=== PATIENT | male | born 1955 | race Caucasian/White ===

== ENCOUNTER 2016-10-12 12:12 | Outpatient (CLI) | payer BC ==
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
== END 2016-10-12 12:13 | disposition home or self-care (01) ==
LOC: NAV RAD 12:12
PROVIDERS: ATTEND Internal Medicine
DX: R07.89 Other chest pain (principal); S22.32XA Fracture of one rib, left side, initial encounter for closed fracture

== ENCOUNTER 2016-10-28 13:36 | Outpatient (CLI) | payer BC ==
[2016-10-28 15:02] LABS: ALT (SGPT) 54 U/L (8-55); AST (SGOT) 48 U/L (5-34); Albumin 4.2 g/dL (3.5-5.0); Alkaline Phosphatase 198 U/L (40-150); Anion Gap 19 mmol/L (10-20); BUN (Urea Nitrogen) 13 mg/dL (8.4-25.7); Bilirubin, Total 1.1 mg/dL (0.2-1.2); Calc. Creatinine Clearance 0 mL/min (70-130); Calcium 9.9 mg/dL (7.8-10.44); Carbon Dioxide 23 mmol/L (22-29); Cardiac Risk 5.5 (Less than 4.5); Chloride 100 mmol/L (98-107); Cholesterol 233 mg/dl (< 200 Desired); Estimated GFR-MDRD 59; Globulin 3.7 g/dL (2.4-3.5); Glucose 111 mg/dL (70-105); HDL Cholesterol 42 mg/dL (>60 Neg Risk); LDL Cholesterol, Calculated 142 mg/dL; Potassium 4.5 mmol/L (3.5-5.1); Protein, Total 7.9 g/dL (6.0-8.3); Sodium 137 mmol/L (136-145); Triglycerides 246 mg/dL (Less than 150)
[2016-10-28 15:28] LABS: Blood, Urine Trace (Negative); Clarity Clear (Clear); Glucose, Urine (Dipstick) Negative (Negative); Leukocyte Negative (Negative); Nitrite Negative (Negative); Protein, Urine (Dipstick) 100 mg/dL (Neg-Trace); Specific Gravity, Urine 1.025 (1.005-1.030); pH, Urine 5.5 (5.0-9.0)
[2016-10-28 16:30] LABS: Bilirubin Negative (Negative); Icto Negative (Negative); RBC/HPF 0-3 HPF (0-3); Squamous Epithelial 0-3 HPF (0-3); WBC/HPF 0-3 HPF (0-3)
[2016-10-28 16:31] LABS: Bacteria/HPF Rare-Few HPF (None Seen); Hyaline Casts/LPF 0-3 HYALINE CAST LPF (0-3 Hyaline)
[2016-10-28 17:25] LABS: #Basophils 0.1 thou/uL (0.0-0.2); #Eosinphils 0.3 thou/uL (0.0-0.7); #Lymphocytes 1.6 thou/uL (1.20-3.40); #Monocytes 0.7 thou/uL (0.11-0.59); %Basophils 1.3 % (0.0-1.0); %Eosinophils 3.1 % (0.0-10.0); %Lymphocytes 18.5 % (21.0-51.0); %Monocytes 7.8 % (0.0-10.0); %Neutrophils 69.3 % (42.0-75.0); MDiff Complete? YES; Macrocytosis SLIGHT = 6-15 cells (100X) (0-5/hpf); Mean Corpuscular HGB CONC 34.6 g/dL (32.0-36.0); Mean Platelet Volume 6.6 fL (7.4-10.4); PLT Morphology Comment Appears Adequate; Platelet Count 308 thou/uL (130-400); RBC Distribution Width 11.3 % (11.5-14.5); Red Blood Cell (RBC) Count 4.57 mill/uL (4.70-6.10); Stomatocytes SLIGHT = 2-5 cells (100X) (0-1/hpf); White Blood Cell (WBC) Count 8.7 thou/uL (4.8-10.8)
== END 2016-10-28 13:37 | disposition home or self-care (01) ==
LOC: NAVSJIPCSP 13:36
PROVIDERS: ATTEND Internal Medicine
DX: I11.9 Hypertensive heart disease without heart failure (principal); Z79.899 Other long term (current) drug therapy
CPT/HCPCS: 36415; 80053; 80061; 81003; 81015; 85025

== ENCOUNTER 2019-09-10 05:29 | Emergency (ER) | payer BC ==
[2019-09-10] MEDS ORDERED: Sodium Chloride 0.9% 1,000 ML ONE (06:09)
[2019-09-10] MEDS ORDERED: Acetaminophen 500 MG TAB ONE (06:14)
[2019-09-10 06:19] LABS: #Lymphocytes 0.7 thou/uL (1.20-3.40); #Monocytes 0.8 thou/uL (0.11-0.59); #Neutrophils 15.6 thou/uL (1.40-6.50); %Basophils 0.3 % (0.0-1.0); %Eosinophils 0.2 % (0.0-10.0); %Lymphocytes 3.9 % (21.0-51.0); %Monocytes 4.4 % (0.0-10.0); %Neutrophils 91.3 % (42.0-75.0); Hemoglobin 15.4 g/dL (14.0-18.0); Mean Corpuscular HGB CONC 33.5 g/dL (32.0-36.0); Mean Corpuscular Hemoglobin 33.9 pg (27.0-31.0); Mean Platelet Volume 6.6 fL (7.4-10.4); Platelet Count 223 thou/uL (130-400); RBC Distribution Width 12.1 % (11.5-14.5); Red Blood Cell (RBC) Count 4.53 mill/uL (4.70-6.10); White Blood Cell (WBC) Count 17.1 thou/uL (4.8-10.8)
[2019-09-10 06:34] LABS: ALT (SGPT) 11 U/L (8-55); AST (SGOT) 12 U/L (5-34); Alkaline Phosphatase 134 U/L (40-110); Anion Gap 16 mmol/L (10-20); BUN (Urea Nitrogen) 11 mg/dL (8.4-25.7); Bilirubin, Total 1.2 mg/dL (0.2-1.2); Calc. Creatinine Clearance 0 mL/min (70-130); Calcium 8.8 mg/dL (7.8-10.44); Carbon Dioxide 21 mmol/L (23-31); Chloride 101 mmol/L (98-107); Estimated GFR-MDRD 74; Globulin 2.8 g/dL (2.4-3.5); Glucose 123 mg/dL (80-115); Potassium 4.4 mmol/L (3.5-5.1); Protein, Total 6.8 g/dL (5.8-8.1); Sodium 134 mmol/L (136-145)
[2019-09-10] MEDS ORDERED: Sulfameth/Trimethoprim DS 800-160mg TAB ONE (07:41)
[2019-09-10] MEDS ORDERED: cefTRIAXone\\ROCEPHIN 1 GM VIAL ONE (07:41)
[2019-09-10] MEDS ORDERED: Sodium Chloride 0.9% 100 ML ONE (07:42)
--- NOTE | 2019-09-10 08:59 | CT ---
PRELIMINARY REPORT/[facility]/EMERGENCY AFTER HOURS PROCEDURE: PROCEDURE: CTA Chest with IV Contrast Material . HISTORY: Short of breath suggest or day with RIGHT lower extremity swelling. TECHNIQUE: Axial images were performed with multiplanar and 3-D (maximum intensity projection and ladan face-shaded) reconstructions. The patient was given iodinated nonionic IV contrast . COMPARISON: None. FINDINGS: 1.8 cm inhomogeneous LEFT thyroid nodule. Trace atherosclerosis and tortuosity aorta with no aneurysm or dissection. Aberrant RIGHT subclavian artery. No evidence of pulmonary embolus. Mediastinum and hilar regions show no masses or lymphadenopathy. Some calcified LEFT hilar lymph nod es. Normal size heart with no pericardial fluid. No pulmonary consolidation, masses, or pleural fluid. Subcentimeter calcified granuloma LEFT lower l obe. Visualized upper abdomen shows some punctate calcified granulomas in the spleen. No acute bony abnormality. IMPRESSION: No pulmonary embolus or aortic dissection. No pulmonary consolidation. Previous granulomatous disease. LEFT thyroid nodule. ELECTRONICALLY SIGNED BY: Umesh Santos MD Sep 10, 2019 7:13:10 AM CDT This report is intended for review by the ordering physician only, in accordance of law. If you recei ve this report in error, please call [facility] at [phone]. FINAL REPORT CT ANGIOGRAM CHEST WITH CONTRAST: HISTORY: Shortness of breath. COMPARISON: None. FINDINGS/IMPRESSION: CT angiogram chest performed after the intravenous administration of contrast. 3D rendering provided. Findings and impression are concordant with the preliminary report by [facility]. 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
[2019-09-10] MEDS ORDERED: Iopamidol 370 76% 100 ML VIAL ONE (09:00)
== END 2019-09-10 08:12 | disposition home or self-care (01) ==
LOC: NAV ERS 05:29
DX: L03.115 Cellulitis of right lower limb (principal); R06.02 Shortness of breath; I10 Essential (primary) hypertension; J44.9 Chronic obstructive pulmonary disease, unspecified; F17.210 Nicotine dependence, cigarettes, uncomplicated; Z79.51 Long term (current) use of inhaled steroids
CPT/HCPCS: 71275; 80053; 83605; 83880; 84484; 85025; 87040; 93005; 94760; 96361; 96374; J0696; J3490; J7050; Q9967

== ENCOUNTER 2022-02-13 19:13 | Emergency (ER) | payer BC, MEDICARE ==
[~2022-02-13 19:13] MED LIST: Iopamidol 370 76% 100 ML VIAL ONE
[2022-02-13] MEDS ORDERED: Acetaminophen 325 MG TAB ONE (19:33)
[2022-02-13] MEDS ORDERED: Sodium Chloride 0.9% 1,000 ML ONE ×2 (19:33→20:01)
[2022-02-13 19:55] LABS: #Lymphocytes 1.2 thou/uL (1.20-3.40); #Monocytes 0.6 thou/uL (0.11-0.59); %Basophils 0.6 % (0.0-1.0); %Eosinophils 0.3 % (0.0-10.0); %Lymphocytes 15.6 % (21.0-51.0); %Monocytes 6.9 % (0.0-10.0); %Neutrophils 76.7 % (42.0-75.0); Hemoglobin 12.3 g/dL (14.0-18.0); Mean Corpuscular HGB CONC 33.3 g/dL (32.0-36.0); Mean Corpuscular Hemoglobin 36.8 pg (27.0-31.0); Mean Platelet Volume 7.4 fL (7.4-10.4); Platelet Count 195 thou/uL (130-400); RBC Distribution Width 11.6 % (11.5-14.5); Red Blood Cell (RBC) Count 3.33 mill/uL (4.70-6.10); White Blood Cell (WBC) Count 7.9 thou/uL (4.8-10.8)
[2022-02-13] MEDS ORDERED: Cefepime 2 GM VIAL ONE (20:01)
[2022-02-13] MEDS ORDERED: Sodium Chloride 0.9% 100 ML ONE (20:01)
[2022-02-13 20:11] LABS: ALT (SGPT) 48 U/L (8-55); AST (SGOT) 84 U/L (5-34); Albumin 2.8 g/dL (3.4-4.8); Alkaline Phosphatase 143 U/L (40-110); Anion Gap 24 mmol/L (10-20); BUN (Urea Nitrogen) Less than 4 mg/dL (8.4-25.7); Bilirubin, Total 2.1 mg/dL (0.2-1.2); Calc. Creatinine Clearance 0 mL/min (70-130); Calcium 6.8 mg/dL (7.8-10.44); Carbon Dioxide 27 mmol/L (23-31); Chloride 89 mmol/L (98-107); Estimated GFR 97; Globulin 2.8 g/dL (2.4-3.5); Glucose 102 mg/dL (80-115); Protein, Total 5.6 g/dL (5.8-8.1); Sodium 137 mmol/L (136-145)
[2022-02-13 20:13] LABS: Magnesium 0.7 mg/dL (1.6-2.6); Potassium 2.7 mmol/L (3.5-5.1)
[2022-02-13] MEDS ORDERED: Magnesium 2 GM/50 ML BAG (IN WATER) ONE (20:24)
[2022-02-13] MEDS ORDERED: Ondansetron PF 4 MG/2 ML Vial ONE (20:39)
[2022-02-13] MEDS ORDERED: Sodium Chloride 0.9% 500 ML ONE (20:39)
[2022-02-13] MEDS ORDERED: Aspirin Chewable 81 MG TAB ONE (20:39)
[2022-02-13] MEDS ORDERED: Potassium Chloride 20 MEQ TAB ONE (20:39)
[2022-02-13] MEDS ORDERED: Sodium Chloride 0.9% 250 ML 500 ML ONE (20:39)
[2022-02-13] MEDS ORDERED: Lorazepam 2 MG/ML VIAL ONE (21:41)
[2022-02-13] MEDS ORDERED: methylPREDNISolone Sod Succ/PF 125 MG/2 ML VIAL ONE (21:43)
[2022-02-13 21:51] LABS: SARS-CoV-2 NAA Rapid Test Not Detected (NotDetected)
[2022-02-13 22:23] LABS: Lactic Acid 3.7 mmol/L (0.5-2.2)
== END 2022-02-13 23:22 | disposition short-term general hospital (02) ==
LOC: NAV ERS 19:13
DX: A41.9 Sepsis, unspecified organism (principal); J44.1 Chronic obstructive pulmonary disease with (acute) exacerbation; E87.6 Hypokalemia; E83.42 Hypomagnesemia; F10.239 Alcohol dependence with withdrawal, unspecified; E86.0 Dehydration; F17.210 Nicotine dependence, cigarettes, uncomplicated
CPT/HCPCS: 36415; 71045; 71275; 80053; 80307; 83605; 83735; 83880; 84484; 85025; 85379; 87040; 93005; 94760; 96361; 96365; 96366; 96367; 96375; J0692; J2060; J2405; J2930; J3370; J3475; J3490; J7030; J7050; J7620; Q9967; U0002

== ENCOUNTER 2022-02-18 13:09 | Emergency (ER) | payer MEDICARE ==
[2022-02-18] MEDS ORDERED: Acetaminophen 500 MG TAB ONE (13:24)
[2022-02-18] MEDS ORDERED: Cefepime 2 GM VIAL ONE (13:48)
[2022-02-18] MEDS ORDERED: Sodium Chloride 0.9% 100 ML ONE (13:48)
[2022-02-18 14:01] LABS: INR-International Normal Ratio 1.1; Prothrombin Time 13.9 sec (12.0-14.7)
[2022-02-18 14:02] LABS: PTT 24.7 sec (22.9-36.1)
[2022-02-18 14:03] LABS: ALT (SGPT) 80 U/L (8-55); AST (SGOT) 112 U/L (5-34); Alcohol 13 mg/dL (Less than 10); Alkaline Phosphatase 113 U/L (40-110); Anion Gap 20 mmol/L (10-20); BUN (Urea Nitrogen) 8 mg/dL (8.4-25.7); Bilirubin, Total 1.4 mg/dL (0.2-1.2); Calc. Creatinine Clearance 0 mL/min (70-130); Calcium 8.3 mg/dL (7.8-10.44); Carbon Dioxide 22 mmol/L (23-31); Chloride 102 mmol/L (98-107); Estimated GFR 97; Globulin 2.9 g/dL (2.4-3.5); Glucose 74 mg/dL (80-115); Magnesium 1.6 mg/dL (1.6-2.6); Potassium 3.7 mmol/L (3.5-5.1); Protein, Total 5.9 g/dL (5.8-8.1); Sodium 140 mmol/L (136-145)
[2022-02-18 14:04] LABS: Phosphorus 2.6 mg/dL (2.3-4.7)
[2022-02-18 14:04] LABS: MDiff Complete? YES
[2022-02-18 14:05] LABS: Band 1 % (5-11); Lymphocytes 10 % (21-51); Monocytes 10 % (0-10); Neutrophil 79 % (42-75)
[2022-02-18 14:06] LABS: Hemoglobin 10.2 g/dL (14.0-18.0); Mean Corpuscular HGB CONC 32.3 g/dL (32.0-36.0); Mean Corpuscular Hemoglobin 37.1 pg (27.0-31.0); Mean Platelet Volume 7.2 fL (7.4-10.4); Platelet Count 217 thou/uL (130-400); RBC Distribution Width 13.1 % (11.5-14.5); Red Blood Cell (RBC) Count 2.74 mill/uL (4.70-6.10); White Blood Cell (WBC) Count 6.3 thou/uL (4.8-10.8)
[2022-02-18 14:07] LABS: Platelet Morphology Comment Appears Adequate
[2022-02-18] MEDS ORDERED: Sucralfate 1 GM TAB ONE (14:13)
[2022-02-18] MEDS ORDERED: Sodium Chloride 0.9% 1,000 ML ONE (14:37)
[2022-02-18] MEDS ORDERED: Sodium Chloride 0.9% 500 ML ONE (14:57)
[2022-02-18 16:47] LABS: SARS-CoV-2 NAA Rapid Test DETECTED (NotDetected)
[2022-02-18 16:57] LABS: Lactic Acid 0.8 mmol/L (0.5-2.2)
== END 2022-02-18 18:15 | disposition short-term general hospital (02) ==
LOC: NAV ERS 13:09
DX: A41.9 Sepsis, unspecified organism (principal); U07.1 COVID-19; J12.82 Pneumonia due to coronavirus disease 2019; I10 Essential (primary) hypertension; J44.9 Chronic obstructive pulmonary disease, unspecified; F17.210 Nicotine dependence, cigarettes, uncomplicated
CPT/HCPCS: 0240U; 71045; 80053; 80307; 83605; 83735; 83880; 84100; 85025; 85610; 85730; 87040; 93005; 94760; 96365; 96366; 96367; 99285; 36415; J0692; J1956; J3370; J3490; J7030; J7050; J7620

== ENCOUNTER 2023-05-19 18:00 | Emergency (ER) | payer MEDICARE ==
[2023-05-19] MEDS ORDERED: Amlodipine 5 MG TAB ONE (18:37)
== END 2023-05-19 18:44 | disposition home or self-care (01) ==
LOC: NAV ERS 18:00
DX: J01.90 Acute sinusitis, unspecified (principal); I10 Essential (primary) hypertension; J44.9 Chronic obstructive pulmonary disease, unspecified; Z87.891 Personal history of nicotine dependence
CPT/HCPCS: 99283